=== PATIENT | male | born 1960 | race Caucasian/White ===

== ENCOUNTER 2018-09-03 01:57 | Inpatient (IN) | payer MEDICAID ==
[~2018-09-03] VITALS: Ht 177.8 cm; Wt 134.7 kg
[~2018-09-03 01:57] MED LIST: ALBU6.7H INH; ASPI-496 PO; ATOR-2 PO; BENA40TA3 PO; CARI350T14 PO; FAMO20TA7 PO; FINA5TAB4 PO; FLUO40CA2 PO; HYDR-3307 PO; HYDR25TA6 PO; MIRT15TA4 PO; OMEP40CA6 PO; QUET100T PO; TAMS0.4C2 PO
[2018-09-03 02:56] LABS: BASOPHILS # (AUTO) 0.03 x10^3/uL (0-0.1); BASOPHILS % (AUTO) 0 % (0-1); EOSINOPHILS % (AUTO) 2 % (1-7); LYMPHOCYTES % (AUTO) 25 % (22-44); MD NO; MEAN CORPUSCULAR HEMOGLOBIN 30.8 pg (27.5-34.5); MEAN CORPUSCULAR HGB CONC 34.3 g/dL (33.2-36.2); MEAN PLATELET VOLUME 7.9 fL (7.4-10.4); MONOCYTES % (AUTO) 10 % (2-9); NEUTROPHILS # (AUTO) 5.38 x10^3/uL (1.8-6.8); NEUTROPHILS % (AUTO) 62 % (42-75); PLATELET COUNT 243 x10^3/uL (130-400); RED BLOOD COUNT 4.78 x10^6/uL (4.38-5.82); RED CELL DISTRIBUTION WIDTH 14.7 % (9.4-14.8)
[2018-09-03] MEDS ORDERED: ALBUTEROL SULFATE 2.5 MG/3 ML NPPB ONE (03:00)
[2018-09-03 03:07] LABS: ALANINE AMINOTRANSFERASE 20 U/L (12-78); ALBUMIN 2.9 g/dL (3.4-5.0); ANION GAP 8 mmol/L (5-15); CALCIUM 8.1 mg/dL (8.5-10.1); CHLORIDE 106 mmol/L (98-107); CREATININE 0.95 mg/dL (0.7-1.3)
[2018-09-03] MEDS ORDERED: ALBUTEROL SULFATE 2.5 MG/3 ML ONE (03:07)
[2018-09-03 03:11] LABS: ALKALINE PHOSPHATASE 76 U/L (45-117); BILIRUBIN,TOTAL 0.5 mg/dL (0.2-1.0); TOTAL PROTEIN 6.7 g/dL (6.4-8.2); TROPONIN I < 0.015 ng/mL (0.000-0.045)
[2018-09-03] MEDS ORDERED: HYDROmorphone 2 MG/ML, 1ML ONE ×2 (04:00→08:00)
[2018-09-03] MEDS ORDERED: ONDANSETRON 2MG/ML, 2ML IVPush ONE (04:00)
[2018-09-03] MEDS ORDERED: ONDANSETRON 2MG/ML, 2ML ONE (04:00)
[2018-09-03] MEDS: HYDROmorphone 2 MG/ML, 1ML IVPush PRN ×2 (04:01→04:27)
[2018-09-03] MEDS ORDERED: OMNIPAQUE 350 MG/ML, 150 ML BOTTLE ONE (04:30)
[2018-09-03] MEDS ORDERED: ONDANSETRON 2MG/ML, 2ML IVPush PRN ×2 (07:00→07:30)
[2018-09-03] MEDS ORDERED: MORPHINE SULFATE 4 MG/ML, 1ML IVPush PRN (07:00)
[2018-09-03] MEDS ORDERED: LORazepam 2 MG/ML, 1ML IVPush PRN (07:30)
[2018-09-03] MEDS ORDERED: morphine SULFATE 10 MG/ML, 1ML IVPush PRN (07:30)
[2018-09-03 08:02] LABS: INTERNATIONAL NORMALIZED RATIO 0.94 (0.93-1.1)
[2018-09-03 09:09] VITALS: BP 102/72
[2018-09-03] MEDS: POTASSIUM CHLORIDE 20 MEQ, MAGNESIUM SULFATE 1 GM, THIAMINE 200 MG, FOLIC ACID 1 MG, MV... IV SCH (10:29)
[2018-09-03] MEDS: SODIUM CHLORIDE 0.9% 1,000 ML IV SCH ×2 (10:30→21:07)
[2018-09-03] MEDS: CARISOPRODOL 350 MG TABLET PO SCH ×2 (12:55→18:05)
[2018-09-03] MEDS: NICOTINE 7 MG/24 HR PATCH.TD24 TD SCH (12:56)
[2018-09-03 14:00] VITALS: BP 125/86
[2018-09-03] MEDS ORDERED: HYDROmorphone 2 MG/ML, 1ML IVPush PRN (14:30)
[2018-09-03] MEDS: MORPHINE SULFATE 4 MG/ML, 1ML IVPush PRN ×2 (18:05→22:46)
[2018-09-03 20:51] VITALS: BP 120/74
[2018-09-03] MEDS: BENAZEPRIL 20 MG TABLET PO SCH (21:07)
[2018-09-03] MEDS: MIRTAZAPINE 15 MG TABLET PO SCH (21:08)
[2018-09-03] MEDS: FAMOTIDINE 20 MG TABLET PO SCH (21:08)
[2018-09-03] MEDS: ATORVASTATIN 80 MG TABLET PO SCH (21:08)
[2018-09-03 21:09] VITALS: BP 104/74
[2018-09-03] MEDS ORDERED: GUAIFENESIN/DM 200-20MG, 10ML UDC PO PRN (22:00)
[2018-09-04] MEDS: CARISOPRODOL 350 MG TABLET PO SCH ×5 (01:47→19:43)
[2018-09-04 01:49] VITALS: BP 143/96
[2018-09-04] MEDS: MORPHINE SULFATE 4 MG/ML, 1ML IVPush PRN ×3 (02:05→20:37)
[2018-09-04 06:01] LABS: BASOPHILS # (AUTO) 0.05 x10^3/uL (0-0.1); BASOPHILS % (AUTO) 1 % (0-1); EOSINOPHILS # (AUTO) 0.15 x10^3/uL (0-0.4); EOSINOPHILS % (AUTO) 2 % (1-7); LYMPHOCYTES # (AUTO) 2.09 x10^3/uL (1-3.4); LYMPHOCYTES % (AUTO) 22 % (22-44); MD NO; MEAN CORPUSCULAR HEMOGLOBIN 30.1 pg (27.5-34.5); MEAN CORPUSCULAR HGB CONC 32.9 g/dL (33.2-36.2); MEAN CORPUSCULAR VOLUME 91.5 fL (81-97); MEAN PLATELET VOLUME 8.2 fL (7.4-10.4); MONOCYTES # (AUTO) 0.71 x10^3/uL (0.2-0.8); MONOCYTES % (AUTO) 7 % (2-9); NEUTROPHILS # (AUTO) 6.63 x10^3/uL (1.8-6.8); NEUTROPHILS % (AUTO) 69 % (42-75); PLATELET COUNT 241 x10^3/uL (130-400); RED BLOOD COUNT 4.59 x10^6/uL (4.38-5.82); RED CELL DISTRIBUTION WIDTH 14.7 % (9.4-14.8)
[2018-09-04 06:20] LABS: CHLORIDE 108 mmol/L (98-107)
[2018-09-04 06:27] LABS: ALANINE AMINOTRANSFERASE 20 U/L (12-78); ALBUMIN 2.9 g/dL (3.4-5.0); ALKALINE PHOSPHATASE 81 U/L (45-117); ANION GAP 9 mmol/L (5-15); BILIRUBIN,TOTAL 0.7 mg/dL (0.2-1.0); CALCIUM 8.1 mg/dL (8.5-10.1); CREATININE 0.83 mg/dL (0.7-1.3); TOTAL PROTEIN 6.7 g/dL (6.4-8.2)
[2018-09-04] MEDS: SODIUM CHLORIDE 0.9% 1,000 ML IV SCH (06:42)
[2018-09-04] MEDS ORDERED: OXYcodone/APAP 5/325MG TABLET PO PRN (07:00)
[2018-09-04 08:04] VITALS: BP 118/81
[2018-09-04] MEDS ORDERED: QUETIAPINE 25MG TABLET ONE (08:52)
[2018-09-04] MEDS: OMEPRAZOLE 20 MG CAPSULE.DR PO SCH (08:54)
[2018-09-04] MEDS: TAMSULOSIN 0.4 MG CAP.ER.24H PO SCH (08:55)
[2018-09-04] MEDS: BENAZEPRIL 20 MG TABLET PO SCH ×2 (08:55→20:36)
[2018-09-04] MEDS: QUETIAPINE 100MG TABLET PO SCH (08:56)
[2018-09-04] MEDS: FAMOTIDINE 20 MG TABLET PO SCH ×2 (09:00→20:36)
[2018-09-04] MEDS: POTASSIUM CHLORIDE 20 MEQ, MAGNESIUM SULFATE 1 GM, THIAMINE 200 MG, FOLIC ACID 1 MG, MV... IV SCH (10:24)
[2018-09-04 12:28] VITALS: BP 122/77
[2018-09-04] MEDS: FOLIC ACID 1 MG TABLET PO SCH (13:00)
[2018-09-04] MEDS: NICOTINE 7 MG/24 HR PATCH.TD24 TD SCH (13:58)
[2018-09-04 19:35] VITALS: BP 134/85
[2018-09-04] MEDS: MIRTAZAPINE 15 MG TABLET PO SCH (20:36)
[2018-09-04] MEDS: ATORVASTATIN 80 MG TABLET PO SCH (20:36)
[2018-09-05 00:40] VITALS: BP 113/73
[2018-09-05] MEDS: MORPHINE SULFATE 4 MG/ML, 1ML IVPush PRN ×2 (04:27→08:17)
[2018-09-05 05:28] LABS: BASOPHILS # (AUTO) 0.02 x10^3/uL (0-0.1); BASOPHILS % (AUTO) 0 % (0-1); EOSINOPHILS # (AUTO) 0.11 x10^3/uL (0-0.4); EOSINOPHILS % (AUTO) 1 % (1-7); LYMPHOCYTES # (AUTO) 1.34 x10^3/uL (1-3.4); LYMPHOCYTES % (AUTO) 18 % (22-44); MD NO; MEAN CORPUSCULAR HEMOGLOBIN 30.6 pg (27.5-34.5); MEAN CORPUSCULAR VOLUME 90.2 fL (81-97); MEAN PLATELET VOLUME 8.2 fL (7.4-10.4); MONOCYTES # (AUTO) 0.63 x10^3/uL (0.2-0.8); MONOCYTES % (AUTO) 8 % (2-9); NEUTROPHILS # (AUTO) 5.55 x10^3/uL (1.8-6.8); NEUTROPHILS % (AUTO) 73 % (42-75); PLATELET COUNT 207 x10^3/uL (130-400); RED BLOOD COUNT 3.93 x10^6/uL (4.38-5.82); RED CELL DISTRIBUTION WIDTH 14.3 % (9.4-14.8)
[2018-09-05] MEDS: CARISOPRODOL 350 MG TABLET PO SCH (07:30)
[2018-09-05 07:33] VITALS: BP 110/73
[2018-09-05] MEDS: OMEPRAZOLE 20 MG CAPSULE.DR PO SCH ×2 (08:03→08:08)
[2018-09-05] MEDS: BENAZEPRIL 20 MG TABLET PO SCH ×2 (08:03→08:08)
[2018-09-05] MEDS: THIAMINE 100MG TABLET PO SCH ×2 (08:03→08:09)
[2018-09-05] MEDS: FOLIC ACID 1 MG TABLET PO SCH ×2 (08:04→08:09)
[2018-09-05] MEDS: TAMSULOSIN 0.4 MG CAP.ER.24H PO SCH ×2 (08:04→08:09)
[2018-09-05] MEDS: FAMOTIDINE 20 MG TABLET PO SCH ×2 (08:04→08:09)
[2018-09-05] MEDS: QUETIAPINE 100MG TABLET PO SCH (08:04)
== END 2018-09-05 10:33 | disposition left against medical advice (07) | DRG 605 ==
LOC: ED 05:38 → EDIP 06:48 → 5SO 08:44
PROVIDERS: ADMIT Family Medicine; ATTEND Family Medicine
DX: S30.1XXA Contusion of abdominal wall, initial encounter (principal); I69.351 Hemiplegia and hemiparesis following cerebral infarction affecting right dominant side; Z68.41 Body mass index [BMI] 40.0-44.9, adult; Z53.21 Procedure and treatment not carried out due to patient leaving prior to being seen by health care provider; E66.01 Morbid (severe) obesity due to excess calories; W18.39XA Other fall on same level, initial encounter; E78.5 Hyperlipidemia, unspecified; F10.10 Alcohol abuse, uncomplicated; I11.9 Hypertensive heart disease without heart failure; I25.10 Atherosclerotic heart disease of native coronary artery without angina pectoris; I67.1 Cerebral aneurysm, nonruptured; K21.9 Gastro-esophageal reflux disease without esophagitis; J44.9 Chronic obstructive pulmonary disease, unspecified; Z72.0 Tobacco use; Z79.82 Long term (current) use of aspirin; Z95.5 Presence of coronary angioplasty implant and graft; I25.2 Old myocardial infarction; Y93.89 Activity, other specified; Y92.89 Other specified places as the place of occurrence of the external cause
CPT/HCPCS: 36415; 99285; J7613; 71045; 74176; 74177; 80053; 83690; 83880; 84484; 85014; 85018; 85025; 85610; 85730; 93005; 93306; 93970; 94640; G0378; J1170; J2405; J3411; J3475; J3480; Q9967; J2270; J7030